=== PATIENT | female | born 1965 | race Caucasian/White ===

== ENCOUNTER 2024-05-24 10:16 | Day surgery (SDC) | payer BC, SELFPAY ==
--- NOTE | 2024-05-24 | PATH_ITS ---
[facility] Accession Number: [id number] No. of containers..01 Tissue . 01 Material submitted: . vulva - VULVAR EXCISION . 01 Diagnosis: VULVAR, EXCISION: Residual high-grade squamous intraepithelial lesion (TISHA-3, usual type), margins clear. Scar, consistent with prior biopsy site. MRV 06/03/2024 1555 Local . 01 Comment: Initial and deeper levels were examined in an effort to better define this process. P16 immunohistochemical stain performed supports the above diagnosis. . 01 Electronically signed: . Leigh Sherman MD, Dermatopathologist NPI- [id number] . 01 Gross description: . Received in formalin with two patient identifiers and vulvar excision, is an unoriented triangular fragment of skin with the shortest edge arbitrarily designating 12 o'clock (1.8 cm from 12-6, 1.4 cm from 3-9, and 0.4 cm thick). Inked as follows: 12 o'clock edge orange, 3 o'clock edge blue, 9 o'clock edge green. Serially sectioned from 3-9 into four slices. Submitted entirely and sequentially from 3-9 with one section per cassette in A1-A4. See diagram. ([id number]) /MRV 05/28/2024 1341 Local . 01 Pathologist provided ICD-10: D04.9 . 01 CPT . 563648, [id number] Specimen Comment: A courtesy copy of this report has been sent to [facility] Pathology Performed at: [address] [facility] [facility], [place], [place] [id number] MD Sundeep Godoy MD Phone: [phone]
--- NOTE | 2024-05-24 09:50 | SUR.OPER ---
Lithotomy on padded OR bed, head on pillow, arms secured on padded arm boards at <90 degrees abduction. Legs secured in padded yellow fins stirrups.
[2024-05-24] MEDS: LACTATED RINGERS 1,000 ML 42 ML IV (10:31)
[2024-05-24] MEDS: ACETAMINOPHEN 325 MG TABLET 975 MG PO (10:33)
[2024-05-24 10:44] VITALS: BP 134/84; PULSE 83; RESP 18; TEMP 36.3; O2SAT 100; BMI 24.2
--- NOTE | 2024-05-24 10:53 | P.HP_ITS ---
History of Present Illness History of Present Illness Chief complaint: Excision Vaginal Lesion/Mass Narrative: 58yo F with newly diagnosed TISHA 3 in March2024, here for planned wide local excision. She is feeling well, with no complaints today. [facility] Medical History TISHA III (vulvar intraepithelial neoplasia III) Social History household members: spouse Smoking Status: Never smoker Meds Home Medications and Allergies Home Medications Medication Instructions Recorded Confirmed Type No Known Home Medications 08/21/23 03/26/24 History Allergies Allergy/AdvReac Type Severity Reaction Status Date / Time No Known Drug Allergies Allergy Unverified 05/24/24 10:38 Review of Systems Review of Systems ROS: Yes All systems reviewed with the patient and are negative except as otherwise documented Exam Const General: cooperative, healthy appearing and comfortable Resp Effort & Inspection: normal respiratory effort and able to speak in complete sentences Skin General: no rashes or lesions noted Neuro Cognition: normal cognition Speech: speech normal Extrem General: normal to inspection Psych Mood: congruent mood Affect: normal affect Assessment & Plan Assessment and plan (1) TISHA III (vulvar intraepithelial neoplasia III): Status: Acute Assessment & Plan narrative: 58yo F with TISHA 3, here for planned wide local excision in the OR. -no preop abx indicated -VTE risk low, SCDs for ppx -plan for same day procedure Surgery consent We discussed the risks/benefits/alternatives to the proposed procedure, to include but not limited to: -risk of bleeding, requiring medications, blood products, or other procedures as indicated -risk of infection, requiring prolonged hospital stay or other procedures -risk of injury to other structures, including bowel, bladder, blood vessels, nerves, etc. which may also require additional procedures -risk of adverse reaction to anesthesia or medications -risk of venous thromboembolism and associated sequelae -risk of rare complications such as cardiac arrest, or extremely rarely, Patient is aware of the risks, and desires to proceed with planned surgical procedure. Time-Based Coding :: [20min] spent with patient and on the chart (including review of chart, obtaining history, exam, reviewing outside data, placing orders, documenting exam and treatment plan, and counseling patient) on [05/24/24].
[2024-05-24] MEDS: LIDOCAINE 1% W/EPI 20 ML INJ (11:24)
[2024-05-24 11:46] VITALS: BP 108/74; PULSE 85; RESP 22; TEMP 36.6; O2SAT 97
[2024-05-24 11:51] VITALS: BP 104/74; PULSE 78; RESP 14; O2SAT 98
[2024-05-24 11:56] VITALS: BP 123/83; PULSE 77; RESP 16; O2SAT 99
[2024-05-24 12:01] VITALS: BP 122/79; PULSE 73; RESP 18; O2SAT 99
--- NOTE | 2024-05-24 12:01 | P.OP_ITS ---
Operative Date/Time/Diagnoses Date of procedure: 05/24/24 Time of procedure: 11:00 Pre-op diagnosis: Vulvar intraepithelial neoplasia III Post-op diagnosis: same Procedure & Clinicians Procedure: Wide local vulvar excision Same procedure as scheduled: Yes Indications: 58yo F with TISHA 3, in need of wide local excision to achieve negative margins. Surgeon: Roula Whiting Click Yes if Unassisted: Yes Anesthesia Type: Sedation and Local Operative Notes Findings: Linear hypopigmented lesion on the lower left vulva at 5 o'clock Closure Type: primary Specimen(s): other (vulvar excision) Estimated Blood Loss (mL): 1 Blood products transfused: none Procedure in detail: The risks, benefits, indications and alternatives of the procedure were reviewed with the patient and informed consent was obtained. The pt was taken to the oper ating room where IV sedation was performed. The pt was then placed in the low lithotomy position using gel-padded Akira stirrups. Sequential compression devices were placed bilaterally for VTE prophylaxis. The pt was then prepped and draped in the sterile fashion. The area of the lesion was then circumscribed with a surgical marker with a 1cm margin. The area was then anesthetized with 1% lidocaine with epinephrine. A circumferential incision was made along the marked area, and the area was then excised. Hemostasis was achieved with Bovie cautery. The defect was then closed with simple interrupted sutures of 4-0 vicryl. The patient tolerated the procedure well. At the completion of the case, the sponge and needle counts were correct x 2. The patient was taken to the PACU in stable condition. Complications: none Post-operative Condition: stable Disposition: same day surgery Plan for aftercare: Discharge to home once meeting PACU criteria.
[2024-05-24 12:08] VITALS: BP 125/84; PULSE 76; RESP 18; TEMP 36.7; O2SAT 99
== END 2024-05-24 12:24 | disposition home or self-care (01) ==
PROVIDERS: PCP Specialist; Referring Provider Student in an Organized Health Care Education/Training Program; Visit Provider Student in an Organized Health Care Education/Training Program
PROC: (CPT 11421; principal; 2024-05-24 10:45)
DX: D07.1 Carcinoma in situ of vulva (principal)
CPT/HCPCS: 11421; 56620; J1100; J1885; J2250; J2405; J2704; J3010